=== PATIENT | female | born 1960 | race Caucasian/White ===

== ENCOUNTER → 2019-02-01 | Outpatient (CLI) | payer BC ==
[~2019-02-01] MED LIST: ACHD5005 PO; CITA10TA7 PO; CYAN250T6 PO; FLAX10002 PO; LYSI500T3 PO; MULT-974 PO; TAMO20TA2 PO
--- NOTE | 2019-02-01 13:33 | Diagnostic Imaging Report ---
PROCEDURE: MRI lumbar spine. TECHNIQUE: Multiplanar, multisequence MRI of the lumbar spine was performed without contrast. INDICATION: Low back pain with right radiculopathy. FINDINGS: There is some mild degenerative lumbar rotoscoliosis. The vertebral body heights are well maintained. There is no spondylolysis. There is no spondylolisthesis. No fractures are identified. Conus medullaris is seen at L1 and is normal in appearance. At T12-L1, there is some mild facet disease. There is however no significant spinal or neuroforaminal encroachment. The L1-L2 disc is normal in height, signal intensity, and morphology. There is mild facet disease. There is no spinal or neuroforaminal encroachment. At L2-L3, there is loss of disc height and signal intensity with some mild broad-based annular bulging. There is some facet disease and thickening of the ligamentum flavum. There is mild central spinal stenosis and mild bilateral neuroforaminal encroachment. At L3-L4, the disc is normal in height, signal intensity, and morphology. There is some facet disease and thickening of the ligamentum flavum. There is no significant spinal stenosis. There is mild neuroforaminal encroachment. At L4-L5, there is loss of disc height and signal intensity. There is broad-based annular bulging, facet disease, and thickening of the ligamentum flavum. There is moderately severe spinal stenosis with encroachment upon the lateral recess on the left. There is mild right and [id number] left neuroforaminal encroachment. At L5-S1, there is very minimal annular bulging with slight effacement of the ventral thecal sac and mild bilateral neuroforaminal encroachment. The aorta is nonaneurysmal. The kidneys are normal in appearance. IMPRESSION: Diffuse lumbar spondylosis and degenerative disc disease, as detailed above. Dictated by: Dictated on workstation # [id number]
== END ==
LOC: RAD 12:25
PROVIDERS: ATTEND Nurse Practitioner Family
DX: M47.26 Other spondylosis with radiculopathy, lumbar region (principal); M51.16 Intervertebral disc disorders with radiculopathy, lumbar region; M51.37 Other intervertebral disc degeneration, lumbosacral region; M51.27 Other intervertebral disc displacement, lumbosacral region
CPT/HCPCS: 72148